=== PATIENT | male | born 1975 | race Caucasian/White ===

== ENCOUNTER 2022-12-10 09:29 | Day surgery (SDC) | payer BC ==
[2022-12-10] MEDS ORDERED: Lidocaine 1% PF 5 ML VIAL ONE (09:50)
[2022-12-10] MEDS ORDERED: Sodium Bicarbonate 2.5 MEQ/5 ML VIAL ONE (09:50)
[2022-12-10] MEDS ORDERED: EPINEPHrine 1 MG/ML AMP ONE (09:50)
[2022-12-10 13:18] VITALS: BP 192/114; TEMP 98.8
== END 2022-12-10 11:40 | disposition home or self-care (01) ==
LOC: CJX 09:29 → EDSTATUS 10:00 → CJX 11:40
PROVIDERS: ATTEND Family Medicine Sports Medicine
PROC: BP38YZZ Magnetic Resonance Imaging (MRI) of Right Shoulder using Other Contrast (ICD-10-PCS; principal; 2022-12-10)
DX: M75.101 Unspecified rotator cuff tear or rupture of right shoulder, not specified as traumatic (principal)
CPT/HCPCS: 23350; J0171